=== PATIENT | female | born 1985 | race Native Hawaiian/Other Pacific Islander ===

== ENCOUNTER 2018-09-11 11:37 | Outpatient (CLI) | payer BC ==
[~2018-09-11 11:37] MED LIST: ADIPEX PO; ADIPEX-P37.5 M1 OR; BROMFED DM PO; LEVAQUIN500 MG OR; MEDROL DOSEPAK4 MG OR
== END 2018-09-11 23:25 | disposition home or self-care (01) ==
LOC: RAD 11:37
DX: M25.521 Pain in right elbow (principal)

== ENCOUNTER 2019-01-08 20:53 | Emergency (ER) | payer BC ==
[~2019-01-08] VITALS: Ht 157.5 cm; Wt 90.7 kg
[2019-01-08 22:08] VITALS: BP 138/78; TEMP 98.3
== END 2019-01-08 22:08 | disposition home or self-care (01) ==
LOC: ED 20:53
PROC: 0HQFXZZ Repair Right Hand Skin, External Approach (ICD-10-PCS; principal; 2019-01-08)
DX: S61.214A Laceration without foreign body of right ring finger without damage to nail, initial encounter (principal); S61.216A Laceration without foreign body of right little finger without damage to nail, initial encounter; W26.0XXA Contact with knife, initial encounter; Y93.89 Activity, other specified; Y92.098 Other place in other non-institutional residence as the place of occurrence of the external cause
CPT/HCPCS: 90471; 90715; 99283; J7040

== ENCOUNTER 2021-04-13 09:16 | Outpatient (CLI) | payer BC, OTHER ==
[~2021-04-13] VITALS: Ht 175.3 cm; Wt 94.8 kg
== END 2021-04-13 20:53 | disposition home or self-care (01) ==
LOC: LABW 09:16 → INF 09:16
PROVIDERS: ATTEND Family Medicine
DX: U07.1 COVID-19 (principal); Z23 Encounter for immunization
CPT/HCPCS: 87502; 96365; M0244